=== PATIENT | female | born 1975 | race Caucasian/White ===

== ENCOUNTER 2016-12-28 00:26 | Emergency (ER) | payer MEDICARE, MEDICAID ==
[~2016-12-28] VITALS: Ht 162.6 cm; Wt 142.9 kg
[~2016-12-28 00:26] MED LIST: ACET1TAB12 PO; ACHC10OT EACH EAR; AGM875T PO; AMLO5TAB2 PO; AMOX500T2 PO; AZIT-21 PO; AZTH250C PO; BACL10TA PO; CARB200T5 PO; CARB200T6 PO; CEPH500C PO; CLON0.2T PO; CPR500T PO; CTLP20T PO; CYCL10TA9 PO; DEPAKOTE; DIVA500T7 PO; DOXY100C2 PO; EPITOL; ETOD400T PO; FAMO20TA5 PO; FLUO20CA25 PO; FLUO40CA PO; FLUO60SO TP; FOR ANXIETY; FURO20TA4 PO; FURO40TA4 PO; HYDR-1231 PO; HYDR-2890 PO; HYDR-3812 PO; HYDR-3816 PO; HYDR25CA5 PO; HYDR25TA4 PO; IBUP-30 PO; LASIX; LOSA100T28 PO; LOSA1TAB19 PO; LOSA1TAB23 PO; LOSA50TA6 PO; MELO7.5T46 PO; METH4TAB PO; METH5POW14 MC; METO5TAB2 PO; MORP60TA39 PO; MTF500T PO; NALT1TAB PO; NAPROSYN; OFLO5DRO2 OP; OMG1KC; ONDA-42 SL; PHEN15CA67 PO; PRED-501 PO; PRED20TA PO; RT-ALBUINH IH; SULF-222 PO; SULF1TAB35 PO; TOPI50TA2 PO; TRAM50TA2 PO; TRIA1TAB3 PO; TRM50T PO; VENL150C PO; ZOLOFT; [UNRECOGNIZED DRUG - REMARK]; epitol PO
[2016-12-28] MEDS ORDERED: ASPIRIN 81 MG CHEW (CHILDREN'S ASA) PO ONE (00:45)
[2016-12-28] MEDS ORDERED: RX-NITROGLYCERIN 0.4 MG TAB BTL 25'S SL PRN (00:45)
--- NOTE | 2016-12-28 01:13 | ED Chest Pain ---
General Chief Complaint: Chest Pain Stated Complaint: SWOLLEN L FOOT CHEST PAIN HEAD PAIN BP Source: patient Exam Limitations: no limitations History of Present Illness Time seen by provider: 00:30 Initial Comments here with report of central chest pain that radiates to the neck and back of the neck. Also complains of headache.denies nausea, vomiting, sweating or weakness. Has had some cardiac workup in the past but is unsure what it was and thinks it may have just been an EKG. States that she notes her blood pressure is up because she can feel the pressure in her neck. Timing/Duration: 1 hour Severity/Quality: moderate, aching, pressure Location: central Radiation: neck Activities at Onset: emotional stress (reports long-term stress) Prior CP/Workup: no prior chest pain ASA po MATTRESS WEAVER: No NTG SL MATTRESS WEAVER: No Associated Symptoms: No abdominal pain, No back pain, No diaphoresis, No fever/ chills, headache, No nausea/vomiting, No shortness of breath, No weakness Allergies and Home Medications Allergies Coded Allergies: No Known Drug Allergies (Unverified , 04/22/16) Home Medications Amlodipine Besylate 5 Mg Tablet, 5 MG PO DAILY, (Reported) Baclofen 10 Mg Tablet, 10 MG PO BID PRN for MUSCLE SPASMS, (Reported) Carbamazepine 200 Mg Tablet, 400 MG PO BID, (Reported) Divalproex Sodium 500 Mg Tablet.dr, 500 MG PO BID, (Reported) Etodolac 400 Mg Tablet, 400 MG PO BID, (Reported) Fluocinolone Acetonide 60 Ml Solution, 60 ML TP twice weekly for 4 Days Prescribed by: OMARI PEDRO on 07/02/16 1133 Furosemide 20 Mg Tablet, 20 MG PO DAILY, (Reported) Hydrocodone/Acetaminophen 1 Each Tablet, 1 EACH PO BID, (Reported) Losartan Potassium 100 Mg Tablet, 100 MG PO DAILY, (Reported) LAST FILLED 08/21/15 #30 Venlafaxine HCl 150 Mg Cap.er.24h, 150 MG PO DAILY, (Reported) Review of Systems Constitutional: see HPI, No chills, No diaphoresis, No fever EENTM: No Symptoms Reported Respiratory: No Symptoms Reported Cardiovascular: See HPI, Chest Pain, Edema Gastrointestinal: Denies Abdominal Pain, Denies Nausea, Denies Vomiting Genitourinary: No Symptoms Reported Musculoskeletal: see HPI, muscle pain, neck pain Skin: no symptoms reported Psychiatric/Neurological: No Symptoms Reported All Other Systems Reviewed Negative Unless Noted: Yes Past Vxqlcfs-Ugeshb-Ghtbzt Hx Patient Social History Alcohol Use: Denies Use Recreational Drug Use: No Smoking Status: Current Everyday Smoker Type Used: Cigarettes Recent Hopitalizations: No Immunizations Up To Date Tetanus Booster (TDap): Unknown Seasonal Allergies Seasonal Allergies: Yes (OCCASSIONALLY) Surgeries HX Surgeries: Yes (HIATAL HERNIA REPAIR,PARTIAL HYSTERECTOMY ) Surgeries: Abdominal, Gallbladder, Hysterectomy, Oophorectomy, 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 Respiratory Hx Respiratory Disorders: Yes (SLEEP APNEA DOESNT USE CPAP, ASTHMA) Respiratory Disorders: Sleep Apnea, COPD Cardiovascular Hx Cardiac Disorders: Yes (MURMUR) Cardiac Disorders: Chronic Edema/Swelling, Hypertension, Peripheral Vascular Neurological Hx Neurological Disorders: Yes (last Seizure 2-3months ago.) Neurological Disorders: Headaches /Migraines, Seizure Disorder Reproductive System Hx Reproductive Disorders: No Sexually Transmitted Disease: No HIV/AIDS: No Female Reproductive Disorders: 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, 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 Genitourinary Hx Genitourinary Disorders: Yes (frequent UTI's) Genitourinary Disorders: UTI-Chronic Gastrointestinal Hx Gastrointestinal Disorders: No Gastrointestinal Disorders: Gastroesophageal Reflux, Hiatal Hernia Musculoskeletal Hx Musculoskeletal Disorders: Yes (LYMPHEDEMA) Musculoskeletal Disorders: Arthritis Endocrine Hx Endocrine Disorders: No HEENT HX ENT Disorders: No Loss of Vision: Denies Hearing Impairment: Denies Cancer Hx Cancer: No Psychosocial Hx Psychiatric Problems: Yes Behavioral Health Disorders: Anxiety, Bipolar, Depression Integumentary HX Skin/Integumentary Disorder: No Blood Transfusions Hx Blood Disorders: No Adverse Reaction to a Blood Tr: No Reviewed Nursing Assessment Reviewed/Agree w Nursing PMH: Yes Family Medical History Significant Family History: Heart Disease, Hypertension Family Medial History: Hypertension G8 SISTER Myocardial infarction 19 FATHER ( at the age of 48yrs old due to a Heart Attack) Physical Exam Vital Signs Capillary Refill : General Appearance: Mild Distress, Obese HEENT: PERRL/EOMI, Pharynx Normal Neck: Non Tender, Supple Respiratory: Lungs Clear, Normal Breath Sounds Cardiovascular: Regular Rate, Rhythm, No Murmur Gastrointestinal: Non Tender, Soft Extremity: Normal Range of Motion, Non Tender, Pedal Edema (1+ bilateral swelling with left greater than right reported.) Neurologic/Psychiatric: Alert, Oriented x3 Skin: Normal Color, Warm/Dry Progress/Results/Core Measures Results/Orders Lab Results Laboratory Tests Test 12/28/16 01:08 12/28/16 03:07 Range/Units White Blood Count 12.4 H 4.3-11.0 10^3/uL Red Blood Count 4.58 4.35-5.85 10^6/uL Hemoglobin 14.2 11.5-16.0 G/DL Hematocrit 44 35-52 % Mean Corpuscular Volume 96 80-99 FL Mean Corpuscular Hemoglobin 31 25-34 PG Mean Corpuscular Hemoglobin Concent 32 32-36 G/DL Red Cell Distribution Width 14.2 10.0-14.5 % Platelet Count 272 130-400 10^3/uL Mean Platelet Volume 10.2 7.4-10.4 FL Neutrophils (%) (Auto) 51 42-75 % Lymphocytes (%) (Auto) 38 12-44 % Monocytes (%) (Auto) 9 0-12 % Eosinophils (%) (Auto) 2 0-10 % Basophils (%) (Auto) 0 0-10 % Neutrophils # (Auto) 6.3 1.8-7.8 X 10^3 Lymphocytes # (Auto) 4.7 H 1.0-4.0 X 10^3 Monocytes # (Auto) 1.1 H 0.0-1.0 X 10^3 Eosinophils # (Auto) 0.3 0.0-0.3 10^3/uL Basophils # (Auto) 0.1 0.0-0.1 10^3/uL Prothrombin Time 12.0 L 12.2-14.7 SEC INR Comment 0.9 0.8-1.4 Activated Partial Thromboplast Time 26 24-35 SEC D-Dimer 0.30 0.00-0.49 UG/ML Sodium Level 144 135-145 MMOL/L Potassium Level 3.7 3.6-5.0 MMOL/L Chloride Level 111 H 98-107 MMOL/L Carbon Dioxide Level 22 21-32 MMOL/L Anion Gap 11 5-14 MMOL/L Blood Urea Nitrogen 16 7-18 MG/DL Creatinine 0.68 0.60-1.30 MG/DL Estimat Glomerular Filtration Rate > 60 BUN/Creatinine Ratio 24 Glucose Level 101 70-105 MG/DL Calcium Level 8.5 8.5-10.1 MG/DL Magnesium Level 2.3 1.8-2.4 MG/DL Total Bilirubin 0.2 0.1-1.0 MG/DL Aspartate Amino Transf (AST/SGOT) 10 5-34 U/L Alanine Aminotransferase (ALT/SGPT) 13 0-55 U/L Alkaline Phosphatase 59 40-136 U/L Myoglobin 14.0 15.4 10.0-92.0 NG/ML Troponin I < 0.30 < 0.30 <0.30 NG/ML B-Type Natriuretic Peptide 33.7 <100.0 PG/ML Total Protein 6.1 L 6.4-8.2 G/DL Albumin 3.7 3.2-4.5 G/DL Amylase Level 28 25-125 U/L Lipase 25 8-78 U/L My Orders Orders - BRIANA FERGUSON MD Cbc With Automated Diff (12/28/16 00:42) Magnesium (12/28/16 00:42) Chest 1 View, Ap/Pa Only (12/28/16 00:42) Ekg Tracing (12/28/16 00:42) Cardiac Profile 1 (12/28/16 00:42) Comprehensive Metabolic Panel (12/28/16 00:42) Myoglobin Serum (12/28/16 00:42) Protime With Inr (12/28/16 00:42) Partial Thromboplastin Time (12/28/16 00:42) O2 (12/28/16 00:42) Monitor-Rhythm Ecg Trace Only (12/28/16 00:42) Lipid Panel (12/29/16 06:00) Aspirin Chewable Tablet (Baby Aspirin Ch (12/28/16 00:45) Rx-Nitroglycerin Sl Tabs (Rx-Nitrostat S (12/28/16 00:45) Saline Lock/Iv-Start (12/28/16 00:42) Lipase (12/28/16 00:42) Amylase (12/28/16 00:42) BNP (12/28/16 00:42) Fibrin Degradation Products (12/28/16 00:42) Ct Head Wo (12/28/16 01:38) Troponin I (12/28/16 03:03) Ekg Tracing (12/28/16 03:03) Myoglobin Serum (12/28/16 03:03) Metoprolol Tartrate (Ir) Tab (Lopressor (12/28/16 04:00) Cyclobenzaprine Tablet (Flexeril Tablet) (12/28/16 03:59) Medications Given in ED Current Medications Medications Dose Ordered Sig/Ramsey Route Start Time Stop Time Status Last Admin Dose Admin Aspirin 324 mg ONCE ONCE PO 12/28/16 00:45 12/28/16 00:46 DC 12/28/16 01:10 324 MG Nitroglycerin 0.4 mg PRN PRN SL 12/28/16 00:45 12/28/16 01:09 0.4 MG Progress Note : Progress Note seen and evaluated. IV, labs, EKG and chest x-ray ordered. ASA 324 mg by mouth and nitroglycerin sublingual ordered. Monitor patient. CT head ordered due to patient report of seizure approximately 1 month ago and falling and hitting her head. She reports increased headaches and pain since then. Monitor patient. Pain resolved after blood pressure improved and with rest. Labs do not show any significant findings. Repeat troponin, myoglobin and EKG ordered. 0350: Metoprolol 25 mg by mouth initiated. Patient had been on 2 agents previously and is only on losartan now. Repeat troponin and myoglobin are negative. Repeat EKG does not show any changes. I did discuss the findings and concerns with the patient. There does not appear to be any active heart attack going on right now. We will initiate additional blood pressure agent and have her follow-up with her doctor and with cardiology for further evaluation including stress test. This was discussed with the patient who agrees. Discharged home with return precautions. Patient verbalize understanding instructions and agreement with plan. ECG Initial ECG Impression Date: December 28, 2016 Initial ECG Impression Time: 00:35 Initial ECG Rate: 84 Initial ECG Rhythm: Normal Sinus Comment sinus rhythm with occasional PVC. No evidence of ST elevation OK. Normal axis. Similar to previous of 11/28/14. Interpreted by me. EKG : EKG Time: 03:10 Rate: 82 Rhythm: Normal Sinus Comment Sinus rhythm with normal axis. No evidence of ST elevation OK. Unchanged from previous done earlier this morning. Interpreted by me. Diagnostic Imaging Diagonstic Imaging: Xray Plain Films/CT/US/NM/MRI: chest Comments No acute findings Reviewed: Reviewed by Me Diagonstic Imaging: CT Plain Films/CT/US/NM/MRI: head Comments No acute findings Reviewed: Reviewed [place] Study Departure Impression Impression: Primary Impression: Chest pain Qualified Codes: R07.9 - Chest pain, unspecified Additional Impressions: Neck pain Headache Qualified Codes: R51 - Headache Uncontrolled hypertension Disposition: 01 HOME, SELF-CARE Condition: Improved Departure-Patient Inst. Decision time for Depature: 03:57 Referrals: KATHRYN RICCI MD FACP [facility] Vivian GREER MD, BASHAR J MD SEGLIE, FLOYD R MD (PCP/Family) Primary Care Physician Patient Instructions: Chest Pain (DC), Generalized Neck Pain (DC), Headache, Adult (DC), High Blood Pressure (DC) Add. Discharge Instructions: All discharge instructions reviewed with patient and/or family. Voiced understanding. Take medications as directed. Follow-up with your doctor this week for recheck and further evaluation including stress test. You may follow-up with the document management specialist as well for the stress test. Return for worsening, fever, vomiting , weakness, breathing problems or other concerns as needed. Scripts Metoprolol Tartrate (Metoprolol Tartrate) 25 Mg Tablet 25 MG PO BID, #60 TAB Prov: BRIANA FERGUSON MD 12/28/16 Cyclobenzaprine HCl (Cyclobenzaprine HCl) 10 Mg Tablet 10 MG PO Q8H Y for SPASMS, #15 TAB 0 Refills Prov: BRIANA FERGUSON MD 12/28/16 BRIANA FERGUSON MD December 28, 2016 01:13
[2016-12-28 01:16] LABS: BASOPHILS # (AUTO) 0.1 10^3/uL (0.0-0.1); BASOPHILS % (AUTO) 0 % (0-10); EOSINOPHILS # (AUTO) 0.3 10^3/uL (0.0-0.3); EOSINOPHILS % (AUTO) 2 % (0-10); LYMPHOCYTES # (AUTO) 4.7 X 10^3 (1.0-4.0); LYMPHOCYTES % (AUTO) 38 % (12-44); MEAN CORPUSCULAR HEMOGLOBIN 31 PG (25-34); MEAN CORPUSCULAR HGB CONC 32 G/DL (32-36); MEAN CORPUSCULAR VOLUME 96 FL (80-99); MEAN PLATELET VOLUME 10.2 FL (7.4-10.4); MONOCYTES # (AUTO) 1.1 X 10^3 (0.0-1.0); MONOCYTES % (AUTO) 9 % (0-12); NEUTROPHILS # (AUTO) 6.3 X 10^3 (1.8-7.8); NEUTROPHILS % (AUTO) 51 % (42-75); PLATELET COUNT 272 10^3/uL (130-400); RED BLOOD COUNT 4.58 10^6/uL (4.35-5.85); RED CELL DISTRIBUTION WIDTH 14.2 % (10.0-14.5); WHITE BLOOD COUNT 12.4 10^3/uL (4.3-11.0)
[2016-12-28 01:24] LABS: INR 0.9 (0.8-1.4)
[2016-12-28 01:38] LABS: ALANINE AMINOTRANSFERASE 13 U/L (0-55); ALBUMIN 3.7 G/DL (3.2-4.5); AMYLASE 28 U/L (25-125); ANION GAP 11 MMOL/L (5-14); ASPARTATE AMINO TRANSFERASE 10 U/L (5-34); BILIRUBIN,TOTAL 0.2 MG/DL (0.1-1.0); BLOOD UREA NITROGEN 16 MG/DL (7-18); BUN/CREATININE RATIO 24; CALCIUM 8.5 MG/DL (8.5-10.1); CARBON DIOXIDE 22 MMOL/L (21-32); CHLORIDE 111 MMOL/L (98-107); CREATININE SERUM 0.68 MG/DL (0.60-1.30); GFR ESTIMATED > 60; GLUCOSE 101 MG/DL (70-105); LIPASE 25 U/L (8-78); MAGNESIUM 2.3 MG/DL (1.8-2.4); POTASSIUM 3.7 MMOL/L (3.6-5.0); SODIUM 144 MMOL/L (135-145); TOTAL PROTEIN 6.1 G/DL (6.4-8.2)
[2016-12-28 03:34] LABS: MYOGLOBIN SERUM 15.4 NG/ML (10.0-92.0); TROPONIN I < 0.30 NG/ML (<0.30)
[2016-12-28] MEDS ORDERED: CYCLOBENZAPRINE 10 MG (FLEXERIL) TAB PO STA (03:59)
[2016-12-28] MEDS ORDERED: meTOprolol TARTRATE 25 MG (LOPRESSOR) TABLET PO ONE (04:00)
[2016-12-28] MEDS ORDERED: METO-333 PO (04:02)
[2016-12-28] MEDS ORDERED: CYCL10TA9 PO (04:02)
[2016-12-28 04:14] VITALS: BP 133/95
--- NOTE | 2016-12-28 06:04 | Diagnostic Imaging Report ---
PROCEDURE: CT head without contrast. TECHNIQUE: Multiple contiguous axial images were obtained through the brain without the use of intravenous contrast. INDICATION: Recurrent headache FINDINGS: Ventricles and sulci are within normal limits for size. There is no intracranial hemorrhage identified. There is no abnormal mass effect or shift of midline structures. IMPRESSION: Unremarkable CT of the head. Dictated by: Dictated on workstation # [id number]
--- NOTE | 2016-12-28 07:00 | Diagnostic Imaging Report ---
INDICATION: Chest pain. TECHNIQUE: Single view chest 1:18 AM. CORRELATION STUDY: 03/01/2016 FINDINGS: Heart size enlarged. Vasculature is within normal limits. The lungs are clear with no consolidating infiltrate. There is no significant effusion or pneumothorax. IMPRESSION: 1. Cardiac enlargement without failure otherwise no acute findings the chest. Dictated by: Dictated on workstation # [id number]
== END 2016-12-28 04:16 | disposition home or self-care (01) ==
LOC: EDUNIT# 00:26 → ER 00:29
DX: R07.9 Chest pain, unspecified (principal); M54.2 Cervicalgia; R51 Headache; I10 Essential (primary) hypertension; F17.210 Nicotine dependence, cigarettes, uncomplicated; Z79.899 Other long term (current) drug therapy
CPT/HCPCS: 36415; 70450; 71010; 80053; 82150; 83690; 83735; 83874; 83880; 84484; 85025; 85379; 85610; 85730; 93005; 93041

== ENCOUNTER 2018-04-27 18:02 | Emergency (ER) | payer MEDICARE, MEDICAID ==
[~2018-04-27] VITALS: Ht 162.6 cm; Wt 131.5 kg
[~2018-04-27 18:02] MED LIST changes: +ACHD5005 PO; -AMLO5TAB2 PO; +AMLO5TAB7 PO; +DIVA-76 PO; +HYDR-34 PO; -HYDR-3812 PO; -LOSA100T28 PO; +LOSA100T8 PO; +METO-333 PO
--- NOTE | 2018-04-27 18:34 | ED Lower Extremity ---
General Chief Complaint: Lower Extremity Stated Complaint: L LEG SWELLING Nursing Triage Note: PT TO ROOM 10 PT CO OF LOWER EXT SWELLING IN L LEG STARTING LAST NITE. Nursing Sepsis Screen: No Definite Risk Source: patient Exam Limitations: no limitations History of Present Illness Date Seen by Provider: Apr 27, 2018 Time Seen by Provider: 18:29 Initial Comments The patient is a 42-year-old white female who has had 54 previous contacts. Several of these have involved complaints of edema. Multiple lower extremity Doppler studies have been done without evidence of phlebitis. She reports that beginning last evening her left lower extremity has seemed to swell considerably as compared to the right. It is not painful. When asked if she had ever used compression stockings she stated that they had been recommended before but she would go to a pharmacy to purchase these there were none available that would fit. Onset: yesterday Pain/Injury Location: left leg Allergies and Home Medications Allergies Coded Allergies: No Known Drug Allergies (Unverified , 04/22/16) Home Medications Amlodipine Besylate 5 Mg Tablet, 5 MG PO DAILY, (Reported) Baclofen 10 Mg Tablet, 10 MG PO BID PRN for MUSCLE SPASMS, (Reported) Carbamazepine 200 Mg Tablet, 400 MG PO BID, (Reported) Cyclobenzaprine HCl 10 Mg Tablet, 10 MG PO Q8H PRN for SPASMS Prescribed by: BRIANA FERGUSON on 12/28/16401 Divalproex Sodium 500 Mg Tablet.dr, 500 MG PO BID, (Reported) Etodolac 400 Mg Tablet, 400 MG PO BID, (Reported) Fluocinolone Acetonide 60 Ml Solution, 60 ML TP twice weekly Prescribed by: OMARI PEDRO on 07/02/16 1133 Furosemide 20 Mg Tablet, 20 MG PO DAILY, (Reported) Hydrocodone Bit/Acetaminophen 1 Each Tablet, 1 EACH PO BID, (Reported) Losartan Potassium 100 Mg Tablet, 100 MG PO DAILY, (Reported) LAST FILLED 08/21/15 #30 Metoprolol Tartrate 25 Mg Tablet, 25 MG PO BID Prescribed by: BRIANA FERGUSON on 12/28/16 0402 Venlafaxine HCl 150 Mg Cap.er.24h, 150 MG PO DAILY, (Reported) Patient Home Medication List Home Medication List Reviewed: Yes Review of Systems Constitutional: see HPI EENTM: no symptoms reported Respiratory: no symptoms reported Cardiovascular: no symptoms reported Gastrointestinal: no symptoms reported Genitourinary: no symptoms reported Musculoskeletal: no symptoms reported Skin: no symptoms reported Psychiatric/Neurological: No Symptoms Reported Past Sepoidp-Kixuqs-Rwbhxi Hx Patient Social History Alcohol Use: Denies Use Recreational Drug Use: No Type Used: Cigarettes Recent Foreign Travel: No Contact w/Someone Who Travel: No Recent Infectious Disease Expo: No Recent Hopitalizations: No Physical Abuse: No Sexual Abuse: No Immunizations Up To Date Tetanus Booster (TDap): Unknown Seasonal Allergies Seasonal Allergies: Yes (OCCASSIONALLY) Past Medical History Surgeries: Yes (HIATAL HERNIA REPAIR,PARTIAL HYSTERECTOMY ) Abdominal, Gallbladder, Hysterectomy, Oophorectomy, 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 Respiratory: Yes (SLEEP APNEA DOESNT USE CPAP, ASTHMA) Sleep Apnea, COPD Currently Using CPAP: No (Has not used in 1yr- was taken due to noncompliance) Currently Using BIPAP: No Cardiac: Yes (MURMUR) Chronic Edema/Swelling, Hypertension, Peripheral Vascular Neurological: Yes (last Seizure 2-3months ago.) Headaches /Migraines, Seizure Disorder Reproductive Disorders: No Female Reproductive Disorders: Denies 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 Sexually Transmitted Disease: No HIV/AIDS: No UTI-Chronic Gastrointestinal: No Gastroesophageal Reflux, Hiatal Hernia Musculoskeletal: Yes (LYMPHEDEMA) Arthritis Endocrine: No Loss of Vision: Denies Hearing Impairment: Denies Cancer: No Psychosocial: Yes Anxiety, Bipolar, Depression Integumentary: No Blood Disorders: No Adverse Reaction/Blood Tranf: No Family Medical History Hypertension G8 SISTER Myocardial infarction 19 FATHER ( at the age of 50yrs old due to a Heart Attack) Heart Disease, Hypertension Physical Exam Vital Signs Vital Signs - First Documented 04/27/18 18:05 Temp 97.9 Pulse 91 Resp 18 B/P (MAP) 151/97 (115) Pulse Ox 97 Capillary Refill : Less Than 3 Seconds Height, Weight, BMI Height: 5'4.00" Weight: 290lbs. 12.0oz. [id number]; 56.8 BMI Method:Stated General Appearance: no apparent distress, other HEENT: normal ENT inspection Neck: full range of motion Cardiovascular: normal peripheral pulses, regular rate, rhythm, no edema, no gallop, no JVD, no murmur Respiratory: chest non-tender, lungs clear, normal breath sounds, no respiratory distress, no accessory muscle use Gastrointestinal: other (huge pannus) Back: normal inspection The lower extremities above the malleoli and extending to the knee are quite large. There is no redness or warmth. The left appears significantly larger than the right. There is no pitting or pain to palpation. Curiously the feet are not particularly edematous. Progress/Results/Core Measures Results/Orders My Orders Orders - LEV STEPHENSON MD Venous Lower Ext Lt (04/27/18 18:28) Vital Signs/I&O 04/27/18 18:05 Temp 97.9 Pulse 91 Resp 18 B/P (MAP) 151/97 (115) Pulse Ox 97 Blood Pressure Mean: 115 Departure Communication (Admissions) Venous Doppler of left lower extremity shows no evidence of venous thrombosis Impression Primary Impression: venous stasis edema Disposition: HOME, SELF-CARE Condition: Stable/Unchanged Departure-Patient Inst. Decision time for Depature: 19:33 Referrals: ROHINI SAMAYOA APRN (PCP) Primary Care Physician Patient Instructions: Dependent Edema (DC) Add. Discharge Instructions: All discharge instructions reviewed with patient and/or family. Voiced understanding. Elevate your legs whenever possible. See your provider for consideration of fitted compression stockings or alternatively instructions on applying Efraín wraps bilaterally. LEV STEPHENSON MD Apr 27, 2018 18:34
--- NOTE | 2018-04-27 19:26 | Diagnostic Imaging Report ---
EXAM: US venous lower extremity, left. INDICATION: Lower extremity edema. COMPARISON: None. TECHNIQUE: Duplex, giles-scale and color flow imaging of the left lower extremity venous system was performed. FINDINGS: The left common femoral vein, superficial femoral vein profunda femoris, and popliteal veins are normal. These vessels show normal compressibility, color flow and Doppler augmentation. The deep calf veins demonstrate no distinct intraluminal thrombus, where seen. IMPRESSION: Negative venous Doppler of the left lower extremity. Dictated by: Dictated on workstation # [id number]
[2018-04-27 19:44] VITALS: BP 153/94
== END 2018-04-27 19:45 | disposition home or self-care (01) ==
LOC: EDUNIT# 18:02 → ER 18:03
DX: G47.30 Sleep apnea, unspecified (principal); I87.302 Chronic venous hypertension (idiopathic) without complications of left lower extremity; J44.9 Chronic obstructive pulmonary disease, unspecified; I10 Essential (primary) hypertension; I73.9 Peripheral vascular disease, unspecified; G43.909 Migraine, unspecified, not intractable, without status migrainosus; G40.909 Epilepsy, unspecified, not intractable, without status epilepticus; K21.9 Gastro-esophageal reflux disease without esophagitis; F41.9 Anxiety disorder, unspecified; F31.9 Bipolar disorder, unspecified; Z91.19 Patient's noncompliance with other medical treatment and regimen; Z82.49 Family history of ischemic heart disease and other diseases of the circulatory system; Z98.890 Other specified postprocedural states; Z90.710 Acquired absence of both cervix and uterus; Z87.19 Personal history of other diseases of the digestive system; Z87.440 Personal history of urinary (tract) infections; Z98.51 Tubal ligation status

== ENCOUNTER 2018-07-14 23:37 | Emergency (ER) | payer MEDICARE, MEDICAID ==
[~2018-07-14] VITALS: Ht 162.6 cm; Wt 131.9 kg
--- OUTSIDE RECORDS SUMMARY | 2018-07-14 23:51 | XMS REPORT | Continuity of Care Document ---
Author Author [facility] Organization [facility] Address Unknown Phone Unavailable Allergies Active Description Code Type Severity Reaction Onset Reported/Identified Relationship to Patient Clinical Status Yes No Known Drug Allergies [id number] Drug Allergy Mild N/A 05/19/2009 Yes No Known Drug Allergies [id number] Drug Allergy Unknown N/A 04/22/2016 Medications There is no data. Problems Date Dx Coded Attending Type Code Diagnosis Diagnosed By 01/01/2010 Ot 723.1 08/27/2011 Ot 789.09 ABDOMINAL PAIN, OTHER SPECIFIED SITE 02/25/2012 Ot 305.1 TOBACCO USE DISORDER 02/25/2012 Ot 401.9 HYPERTENSION NOS 02/25/2012 Ot 780.2 SYNCOPE AND COLLAPSE 02/25/2012 Ot V58.69 OTH MED,LT, CURRENT USE 03/22/2012 Ot 780.2 SYNCOPE AND COLLAPSE 03/22/2012 Ot V58.69 OTH MED,LT, CURRENT USE 07/13/2012 Ot 780.39 OTHER CONVULSIONS 09/15/2012 Ot 401.9 HYPERTENSION NOS 09/15/2012 Ot 486 PNEUMONIA, ORGANISM NOS 09/15/2012 Ot 785.1 PALPITATIONS 09/15/2012 Ot 786.50 CHEST PAIN NOS 09/15/2012 Ot 786.59 CHEST PAIN NEC 09/15/2012 Ot V58.69 OTH MED,LT, CURRENT USE 11/05/2012 Ot 327.23 OBSTRUCTIVE SLEEP APNEA (ADULT) (PEDIATR 12/17/2012 CAROLYNE SANDOVAL, ERIK Sierra Ot 327.23 OBSTRUCTIVE SLEEP APNEA (ADULT) (PEDIATR 02/01/2013 RICHIE DEVLIN DO Ot 782.1 NONSPECIF SKIN ERUPT NEC 02/01/2013 RICHIE DEVLIN DO Ot 782.3 EDEMA 07/09/2013 ONEYDA SANDOVAL, IVIS Escamilla Ot 246.9 DISORDER OF THYROID NOS 07/09/2013 ONEYDA SANDOVAL, IVIS Escamilla Ot 276.8 HYPOPOTASSEMIA 07/09/2013 IVIS CALL MD Ot 345.90 EPILEPSY UNSPEC W/O MENTION INTRACTABLE 11/04/2013 MELANIE SANDOVAL, EDY Bustamante Ot 327.23 OBSTRUCTIVE SLEEP APNEA (ADULT) (PEDIATR 11/04/2013 MELANIE SANDOVAL, EDY Bustamante Ot 784.0 HEADACHE 11/04/2013 EDY NAVARRO MD Ot 786.09 RESPIRATORY ABNORM NEC 11/04/2013 EDY NAVARRO MD Ot V15.81 HX OF PAST NONCOMPLIANCE 05/21/2014 ONEYDA SANDOVAL, IVIS Escamilla Ot 346.90 MIGRAINE UNSPECIFIED W/O INTRACT MGRN W/ 10/11/2014 Ot 346.90 MIGRAINE UNSPECIFIED W/O INTRACT MGRN W/ 11/28/2014 Ot 729.5 11/28/2014 Ot 729.81 11/28/2014 Ot 401.9 11/28/2014 Ot 424.0 11/28/2014 THALIA SANDOVAL, RICHIE Corrales Ot 241.1 11/28/2014 ARISTIDES EVERETT Ot 536.8 STOMACH FUNCTION DIS NEC 11/28/2014 ARISTIDES EVERETT Ot 729.5 PAIN IN LIMB 11/28/2014 ARISTIDES EVERETT Ot 729.81 SWELLING OF LIMB 11/28/2014 ARISTIDES EVERETT Ot 782.3 EDEMA 11/28/2014 ARISTIDES EVERETT Ot V15.81 HX OF PAST NONCOMPLIANCE 01/01/2015 Ot 729.5 01/01/2015 Ot 729.81 01/01/2015 Ot 401.9 01/01/2015 Ot 424.0 01/01/2015 RICHIE VÁSQUEZ MD Ot 241.1 01/01/2015 ARISTIDES EVERETT Ot 847.2 SPRAIN LUMBAR REGION 01/01/2015 ARISTIEDS EVERETT Ot 959.19 OTH INJURY OF OTHER SITES OF TRUNK 01/01/2015 ARISTIDES EVERETT Ot E000.8 OTHER EXTERNAL CAUSE STATUS 01/01/2015 ARISTIDES EVERETT Ot E013.9 OTHER HOUSEHOLD MAINTENANCE 01/01/2015 ARISTIDES EVERETT Ot E849.0 ACCIDENT IN HOME 01/01/2015 ARISTIDES EVERETT Ot E927.0 OVEREXERTION FROM SUDDEN STRENUOUS MOVEM 01/12/2015 Ot 729.5 01/12/2015 Ot 729.81 01/12/2015 Ot 401.9 01/12/2015 Ot 424.0 01/12/2015 THALIA SANDOVAL, RICHIE A Ot 241.1 01/12/2015 BRIANA FERGUSON MD Ot 345.90 EPILEPSY UNSPEC W/O MENTION INTRACTABLE 01/12/2015 BRIANA FERGUSON MD Ot 784.0 HEADACHE 02/07/2015 BRIANA FERGUSON MD Ot 380.10 INFEC OTITIS EXTERNA NOS 02/07/2015 BRIANA FERGUSON MD Ot 388.70 OTALGIA NOS 02/17/2015 ARISTIDES EVERETT Ot 346.90 MIGRAINE UNSPECIFIED W/O INTRACT MGRN W/ 02/17/2015 ARISTIDES EVERETT Ot 465.9 ACUTE URI NOS 02/17/2015 ARISTIDES EVERETT Ot 784.0 HEADACHE 03/26/2015 IVIS CALL MD Ot 784.0 HEADACHE 03/26/2015 IVIS CALL MD Ot 787.01 NAUSEA WITH VOMITING 03/26/2015 IVIS CALL MD Ot 787.02 NAUSEA ALONE 04/01/2015 RAMSEY FINLEY MD Ot 782.3 04/12/2015 RAMSEY FINLEY MD Ot 782.3 04/17/2015 BRIANA FERGUSON MD Ot 112.3 CUTANEOUS CANDIDIASIS 04/17/2015 BRIANA FERGUSON MD Ot 682.6 CELLULITIS OF LEG 04/17/2015 BRIANA FERGUSON MD Ot 729.5 PAIN IN LIMB 04/18/2015 Ot 729.5 04/18/2015 Ot 729.81 04/18/2015 Ot 401.9 04/18/2015 Ot 424.0 04/18/2015 THALIA SANDOVAL, RICHIE A Ot 241.1 04/18/2015 RAMSEY FINLEY MD Ot 782.3 06/17/2015 JIMI TORRES MD Ot 682.6 07/11/2015 PRISCA BOSWELL APRN Ot E66.09 OTHER OBESITY DUE TO EXCESS CALORIES 07/11/2015 PRISCA BOSWELL APRN Ot L02.415 CUTANEOUS ABSCESS OF RIGHT LOWER LIMB 07/11/2015 PRISCA BOSWELL APRN Ot Z68.43 BODY MASS INDEX (BMI) 50-59.9 , ADULT 08/19/2015 THALIA SANDOVAL, RICHIE Corrales Ot 241.1 08/19/2015 RAMSEY FINLEY MD R Ot 782.3 08/19/2015 MELISSA SANDOVAL, JIMI Ot 682.6 08/21/2015 RAMSEY FINLEY MD R Ot E66.01 MORBID (SEVERE) OBESITY DUE TO EXCESS CA 08/21/2015 RAMSEY FINLEY MD R Ot F17.210 NICOTINE DEPENDENCE, CIGARETTES, UNCOMPL 08/21/2015 RAMSEY FINLEY MD R Ot F32.9 MAJOR DEPRESSIVE DISORDER, SINGLE EPISOD 08/21/2015 RAMSEY FINLEY MD R Ot F41.9 ANXIETY DISORDER, UNSPECIFIED 08/21/2015 RAMSEY FINLEY MD R Ot G40.909 EPILEPSY, UNSP, NOT INTRACTABLE, WITHOUT 08/21/2015 RAMSEY FINLEY MD R Ot G43.909 MIGRAINE, UNSP, NOT INTRACTABLE, WITHOUT 08/21/2015 RAMSEY FINLEY MD R Ot I10 ESSENTIAL (PRIMARY) HYPERTENSION 08/21/2015 RAMSEY FINLEY MD R Ot J44.9 CHRONIC OBSTRUCTIVE PULMONARY DISEASE, U 08/21/2015 RAMSEY FINLEY MD R Ot K21.9 GASTRO-ESOPHAGEAL REFLUX DISEASE WITHOUT 08/21/2015 RAMSEY FINLEY MD R Ot R60.1 GENERALIZED EDEMA 08/21/2015 RAMSEY FINLEY MD Ot Z68.43 BODY MASS INDEX (BMI) 50-59.9 , ADULT 10/02/2015 THALIA SANDOVAL, RICHIE Corrales Ot 241.1 10/02/2015 RAMSEY FINLEY MD R Ot 782.3 10/02/2015 MELISSA SANDOVAL, JIMI Ot 682.6 10/02/2015 GURWINDER GODWIN MD Ot M17.11 10/03/2015 RAMSEY FINLEY MD R Ot E66.01 MORBID (SEVERE) OBESITY DUE TO EXCESS CA 10/03/2015 RAMSEY FINLEY MD R Ot F17.210 NICOTINE DEPENDENCE, CIGARETTES, UNCOMPL 10/03/2015 RAMSEY FINLEY MD R Ot I10 ESSENTIAL (PRIMARY) HYPERTENSION 10/03/2015 MALIA SANDOVAL, RAMSEY Yan Ot K21.9 GASTRO-ESOPHAGEAL REFLUX DISEASE WITHOUT 10/03/2015 MALIA SANDOVAL, RAMSEY R Ot R60.0 LOCALIZED EDEMA 10/03/2015 MALIA SANDOVAL, RAMSEY R Ot R73.09 OTHER ABNORMAL GLUCOSE 10/03/2015 MALIA SANDOVAL, RAMSEY R Ot Z68.43 BODY MASS INDEX (BMI) 50-59.9 , ADULT 10/18/2015 CITLALI SANDOVAL, GURWINDER Huerta Ot M17.11 10/25/2015 PEDROOMARI BAUMANN APRN Ot F17.210 NICOTINE DEPENDENCE, CIGARETTES, UNCOMPL 10/25/2015 OMARI PEDRO APRN Ot G40.909 EPILEPSY, UNSP, NOT INTRACTABLE, WITHOUT 11/01/2015 ONEYDA SANDOVAL, IVIS Escamilla Ot E66.9 OBESITY, UNSPECIFIED 11/01/2015 ONEYDA SANDOVAL, IVIS Escamilla Ot F17.210 NICOTINE DEPENDENCE, CIGARETTES, UNCOMPL 11/01/2015 ONEYDA SANDOVAL, IVIS Escamilla Ot G40.909 EPILEPSY, UNSP, NOT INTRACTABLE, WITHOUT 11/01/2015 ONEYDA SANDOVAL, IVIS Escamilla Ot J20.9 ACUTE BRONCHITIS, UNSPECIFIED 11/01/2015 ONEYDA SANDOVAL, IVIS Escamilla Ot R51 HEADACHE 11/25/2015 Ot E07.9 DISORDER OF THYROID, UNSPECIFIED 11/25/2015 Ot E66.9 OBESITY, UNSPECIFIED 11/25/2015 Ot F17.210 NICOTINE DEPENDENCE, CIGARETTES, UNCOMPL 11/25/2015 Ot G40.909 EPILEPSY, UNSP, NOT INTRACTABLE, WITHOUT 11/25/2015 Ot I10 ESSENTIAL ( PRIMARY) HYPERTENSION 11/25/2015 Ot N39.0 URINARY TRACT INFECTION, SITE NOT SPECIF 11/25/2015 Ot S00.12XA CONTUSION OF LEFT EYELID AND PERIOCULAR 11/25/2015 Ot S02.2XXA FRACTURE OF NASAL BONES, INIT ENCNTR FOR 11/25/2015 Ot W18.30XA FALL ON SAME LEVEL, UNSPECIFIED, INITIAL 11/25/2015 Ot Y99.8 OTHER EXTERNAL CAUSE STATUS 11/30/2015 Ot E07.9 11/30/2015 Ot E66.9 11/30/2015 Ot F17.210 11/30/2015 Ot G40.909 11/30/2015 Ot I10 11/30/2015 Ot N39.0 11/30/2015 Ot S00.12XA 11/30/2015 Ot S02.2XXA 11/30/2015 Ot W18.30XA 11/30/2015 Ot Y99.8 12/31/2015 MALIA SANDOVAL, RAMSEY R Ot M79.1 MYALGIA 01/29/2016 MALIA SANDOVAL, RAMSEY R Ot M79.1 MYALGIA 03/01/2016 CLAUS DO, RICHIE K Ot E66.9 OBESITY, UNSPECIFIED 03/01/2016 CLAUS DO, RICHIE K Ot F17.210 NICOTINE DEPENDENCE, CIGARETTES, UNCOMPL 03/01/2016 CLAUS DO, RICHIE K Ot K62.5 HEMORRHAGE OF ANUS AND RECTUM 03/03/2016 CLAUS DO, RICHIE K Ot E66.9 OBESITY, UNSPECIFIED 03/03/2016 CLAUS DO, RICHIE K Ot F17.210 NICOTINE DEPENDENCE, CIGARETTES, UNCOMPL 03/03/2016 CLAUS DO, RICHIE K Ot K62.5 HEMORRHAGE OF ANUS AND RECTUM 03/18/2016 OMARI PEDRO APRN Ot I10 ESSENTIAL (PRIMARY) HYPERTENSION 03/18/2016 OMARI PEDRO PARKING ENFORCEMENT MANAGER Ot R20.0 ANESTHESIA OF SKIN 03/18/2016 OMARI PEDRO PARKING ENFORCEMENT MANAGER Ot R20.2 PARESTHESIA OF SKIN 03/19/2016 OMARI PEDRO PARKING ENFORCEMENT MANAGER Ot I10 ESSENTIAL (PRIMARY) HYPERTENSION 03/19/2016 OMARI PEDRO APRN Ot R20.0 ANESTHESIA OF SKIN 03/19/2016 OMARI PEDRO PARKING ENFORCEMENT MANAGER Ot R20.2 PARESTHESIA OF SKIN 04/22/2016 RANDAL LOUIS DO Ot K92.1 MELENA 04/22/2016 RANDAL LOUIS DO Ot Z01.818 ENCOUNTER FOR OTHER PREPROCEDURAL EXAMIN 04/23/2016 RANDAL LOUIS DO Ot K92.1 MELENA 04/23/2016 RANDAL LOUIS DO Ot Z01.818 ENCOUNTER FOR OTHER PREPROCEDURAL EXAMIN 04/28/2016 THALIA SANDOVAL, RICHIE Corrales Ot 241.1 NONTOX MULTINODUL GOITER 04/28/2016 MALIA SANDOVAL, RAMSEY Yan Ot 782.3 EDEMA 04/28/2016 MELISSA SANDOVAL, JIMI Ot 682.6 CELLULITIS OF LEG 04/28/2016 CITLALI SANDOVAL, GURWINDER Huerta Ot M17.11 UNILATERAL PRIMARY OSTEOARTHRITIS, RIGHT 04/28/2016 MALIA SANDOVAL, RAMSEY R Ot M79.1 MYALGIA 04/28/2016 RANDAL LOUIS DO Ot K63.5 POLYP OF COLON 05/01/2016 RANDAL LOUIS DO Ot K63.5 POLYP OF COLON 05/01/2016 RANDAL LOUIS DO Ot K63.5 POLYP OF COLON 07/02/2016 OMARI PEDRO PARKING ENFORCEMENT MANAGER Ot G43.909 MIGRAINE, UNSP, NOT INTRACTABLE, WITHOUT 07/02/2016 OMARI PEDRO PARKING ENFORCEMENT MANAGER Ot I10 ESSENTIAL (PRIMARY) HYPERTENSION 07/02/2016 OMARI PEDRO PARKING ENFORCEMENT MANAGER Ot J44.9 CHRONIC OBSTRUCTIVE PULMONARY DISEASE, U 07/02/2016 OMARI PEDRO PARKING ENFORCEMENT MANAGER Ot L30.9 DERMATITIS, UNSPECIFIED 07/02/2016 OMARI PEDRO PARKING ENFORCEMENT MANAGER Ot Z79.899 OTHER RESIDENTIAL (CURRENT) DRUG THERAPY 07/11/2016 OMARI PEDRO PARKING ENFORCEMENT MANAGER Ot G43.909 MIGRAINE, UNSP, NOT INTRACTABLE, WITHOUT 07/11/2016 OMARI PEDRO PARKING ENFORCEMENT MANAGER Ot I10 ESSENTIAL (PRIMARY) HYPERTENSION 07/11/2016 OMARI PEDRO PARKING ENFORCEMENT MANAGER Ot J44.9 CHRONIC OBSTRUCTIVE PULMONARY DISEASE, U 07/11/2016 OMARI PEDRO PARKING ENFORCEMENT MANAGER Ot L30.9 DERMATITIS, UNSPECIFIED 07/11/2016 OMARI PEDRO PARKING ENFORCEMENT MANAGER Ot Z79.899 OTHER MANUFACTURING ENGINEER CHIEF (CURRENT) DRUG THERAPY 08/06/2016 THALIA SANDOVAL, RICHIE A Ot 241.1 NONTOX MULTINODUL GOITER 08/06/2016 MALIA SANDOVAL, RAMSEY Yan Ot 782.3 EDEMA 08/06/2016 MELISSA SANDOVAL, JIMI Ot 682.6 CELLULITIS OF LEG 08/06/2016 CITLALI SANDOVAL, GURWINDER Huerta Ot M17.11 UNILATERAL PRIMARY OSTEOARTHRITIS, RIGHT 08/06/2016 MALIA SANDOVAL, RAMSEY Yan Ot M79.1 MYALGIA 12/28/2016 BRIANA FERGUSON MD Ot F17.210 NICOTINE DEPENDENCE, CIGARETTES, UNCOMPL 12/28/2016 BRIANA FERGUSON MD Ot I10 ESSENTIAL (PRIMARY) HYPERTENSION 12/28/2016 BRIANA FERGUSON MD Ot M54.2 CERVICALGIA 12/28/2016 BRIANA FERGUSON MD Ot R07.9 CHEST PAIN, UNSPECIFIED 12/28/2016 BRIANA FERGUSON MD Ot R51 HEADACHE 12/28/2016 BRIANA FERGUSON MD, Ot Z79.899 OTHER MANUFACTURING ENGINEER CHIEF (CURRENT) DRUG THERAPY 12/30/2016 BRIANA FERGUSON MD Ot F17.210 NICOTINE DEPENDENCE, CIGARETTES, UNCOMPL 12/30/2016 BRIANA FERGUSON MD Ot I10 ESSENTIAL (PRIMARY) HYPERTENSION 12/30/2016 BRIANA FERGUSON MD Ot M54.2 CERVICALGIA 12/30/2016 BRIANA FERGUSON MD Ot R07.9 CHEST PAIN, UNSPECIFIED 12/30/2016 BRIANA FERGUSON MD Ot R51 HEADACHE 12/30/2016 BRIANA FERGUSON MD, Ot Z79.899 OTHER MANUFACTURING ENGINEER CHIEF (CURRENT) DRUG THERAPY 04/27/2018 LEV STEPHENSON MD Ot F31.9 BIPOLAR DISORDER, UNSPECIFIED 04/27/2018 LEV STEPHENSON MD Ot F41.9 ANXIETY DISORDER, UNSPECIFIED 04/27/2018 LEV STEPHENSON MD Ot G40.909 EPILEPSY, UNSP, NOT INTRACTABLE, WITHOUT 04/27/2018 LEV STEPHENSON MD Ot G43.909 MIGRAINE, UNSP, NOT INTRACTABLE, WITHOUT 04/27/2018 LEV STEPHENSON MD Ot G47.30 SLEEP APNEA, UNSPECIFIED 04/27/2018 LEV STEPHENSON MD Ot I10 ESSENTIAL (PRIMARY) HYPERTENSION 04/27/2018 LEV STEPHENSON MD Ot I73.9 PERIPHERAL VASCULAR DISEASE, UNSPECIFIED 04/27/2018 LEV STEPHENSON MD Ot 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 VENOUS HYPERTENSION 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 04/27/2018 LEV STEPHENSON MD Ot J44.9 CHRONIC OBSTRUCTIVE PULMONARY DISEASE, U 04/27/2018 LEV STEPHENSON MD Ot K21.9 GASTRO-ESOPHAGEAL REFLUX DISEASE WITHOUT 04/27/2018 LEV STEPHENSON MD Ot R60.0 LOCALIZED EDEMA 04/27/2018 LEV STEPHENSON MD Ot Z82.49 FAMILY HX OF ISCHEM HEART DIS AND OTH DI 04/27/2018 LEV STEPHENSON MD Ot Z87.19 PERSONAL HISTORY OF OTHER DISEASES OF TH 04/27/2018 LEV STEPHENSON MD, Ot Z87.440 PERSONAL HISTORY OF URINARY (TRACT) INFE 04/27/2018 LEV STEPHENSON MD Ot Z90.710 ACQUIRED ABSENCE OF BOTH CERVIX AND UTER 04/27/2018 LEV STEPHENSON MD Ot Z91.19 PATIENT'S NONCOMPLIANCE W OT MEDICAL TR 04/27/2018 LEV STEPHENSON MD, Ot Z98.51 TUBAL LIGATION STATUS 04/27/2018 LEV STEPHENSON MD, Ot Z98.890 OTHER SPECIFIED POSTPROCEDURAL STATES 04/29/2018 LEV STEPHENSON MD, Ot F31.9 BIPOLAR DISORDER, UNSPECIFIED 04/29/2018 LEV STEPHENSON MD, Ot F41.9 ANXIETY DISORDER, UNSPECIFIED 04/29/2018 LEV STEPHENSON MD Ot G40.909 EPILEPSY, UNSP, NOT INTRACTABLE, WITHOUT 04/29/2018 LEV STEPHENSON MD Ot G43.909 MIGRAINE, UNSP, NOT INTRACTABLE, WITHOUT 04/29/2018 LEV STEPHENSON MD Ot G47.30 SLEEP APNEA, UNSPECIFIED 04/29/2018 LEV STEPHENSON MD Ot I10 ESSENTIAL (PRIMARY) HYPERTENSION 04/29/2018 LEV STEPHENSON MD Ot I73.9 PERIPHERAL VASCULAR DISEASE, UNSPECIFIED 04/29/2018 LEV STEPHENSON MD Ot 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 VENOUS HYPERTENSION W/O COMP OF 04/29/2018 LEV STEPHENSON MD Ot J44.9 CHRONIC OBSTRUCTIVE PULMONARY DISEASE, U 04/29/2018 LEV STEPHENSON MD Ot K21.9 GASTRO-ESOPHAGEAL REFLUX DISEASE WITHOUT 04/29/2018 LEV STEPHENSON MD Ot R60.0 LOCALIZED EDEMA 04/29/2018 LEV STEPHENSON MD Ot Z82.49 FAMILY HX OF ISCHEM HEART DIS AND OTH DI 04/29/2018 LEV STEPHENSON MD Ot Z87.19 PERSONAL HISTORY OF OTHER DISEASES OF TH 04/29/2018 LEV STEPHENSON MD, Ot Z87.440 PERSONAL HISTORY OF URINARY (TRACT) INFE 04/29/2018 LEV STEPHENSON MD Ot Z90.710 ACQUIRED ABSENCE OF BOTH CERVIX AND UTER 04/29/2018 LEV STEPHENSON MD, Ot Z91.19 PATIENT'S NONCOMPLIANCE W [facility] MED[facility] TR 04/29/2018 LEV STEPHENSON MD, Ot Z98.51 TUBAL LIGATION STATUS 04/29/2018 LEV STEPHENSON MD, Ot Z98.890 OTHER SPECIFIED POSTPROCEDURAL STATES Procedures There is no data. Results Test Result Range Complete blood count (CBC) with automated white blood cell (WBC) differential - 12/28/16 01:08 Blood leukocytes automated count (number/volume) 12.4 10*3/uL 4.3-11.0 Blood erythrocytes automated count (number/volume) 4.58 10*6/uL 4.35-5.85 Venous blood hemoglobin measurement (mass/volume) 14.2 g/dL 11.5-16.0 Blood hematocrit (volume fraction) 44 % 35-52 Automated erythrocyte mean corpuscular volume 96 [foz_us] 80-99 Automated erythrocyte mean corpuscular hemoglobin (mass per erythrocyte) 31 pg 25-34 Automated erythrocyte mean corpuscular hemoglobin concentration measurement ( mass/volume) 32 g/dL 32-36 Automated erythrocyte distribution width ratio 14.2 % 10.0-14.5 Automated blood platelet count (count/volume) 272 10*3/uL 130-400 Automated blood platelet mean volume measurement 10.2 [foz_us] 7.4-10.4 Automated blood neutrophils/100 leukocytes 51 % 42-75 Automated blood lymphocytes/100 leukocytes 38 % 12-44 Blood monocytes/100 leukocytes 9 % 0-12 Automated blood eosinophils/100 leukocytes 2 % 0-10 Automated blood basophils/100 leukocytes 0 % 0-10 Blood neutrophils automated count (number/volume) 6.3 10*3 1.8-7.8 Blood lymphocytes automated count (number/volume) 4.7 10*3 1.0-4.0 Blood monocytes automated count (number/volume) 1.1 10*3 0.0-1.0 Automated eosinophil count 0.3 10*3/uL 0.0-0.3 Automated blood basophil count (count/volume) 0.1 10*3/uL 0.0-0.1 PT panel in platelet poor plasma by coagulation assay - 12/28/16 01:08 Prothrombin time (PT) in platelet poor plasma by coagulation assay 12.0 s 12.2-14.7 INR in platelet poor plasma or blood by coagulation assay 0.9 0.8-1.4 Activated partial thromboplastin time (aPTT) in platelet poor plasma bycoagulation assay - 12/28/16 01:08 Activated partial thromboplastin time (aPTT) in platelet poor plasma bycoagulation assay 26 s 24-35 Comprehensive metabolic panel - 12/28/16 01:08 Serum or plasma sodium measurement (moles/volume) 144 mmol/L 135-145 Serum or plasma potassium measurement (moles/volume) 3.7 mmol/L 3.6-5.0 Serum or plasma chloride measurement (moles/volume) 111 mmol/L 98-107 Carbon dioxide 22 mmol/L 21-32 Serum or plasma anion gap determination (moles/volume) 11 mmol/L 5-14 Serum or plasma urea nitrogen measurement (mass/volume) 16 mg/dL 7-18 Serum or plasma creatinine measurement (mass/volume) 0.68 mg/dL 0.60-1.30 Serum or plasma urea nitrogen/creatinine mass ratio 24 NRG Serum or plasma creatinine measurement with calculation of estimated glomerular filtration rate > NRG Serum or plasma glucose measurement (mass/volume) 101 mg/dL 70-105 Serum or plasma calcium measurement (mass/volume) 8.5 mg/dL 8.5-10.1 Serum or plasma total bilirubin measurement (mass/volume) 0.2 mg/dL 0.1-1.0 Serum or plasma alkaline phosphatase measurement (enzymatic activity/volume) 59 U/L 40-136 Serum or plasma aspartate aminotransferase measurement (enzymatic activity/ volume) 10 U/L 5-34 Serum or plasma alanine aminotransferase measurement (enzymatic activity/volume ) 13 U/L 0-55 Serum or plasma protein measurement (mass/volume) 6.1 g/dL 6.4-8.2 Serum or plasma albumin measurement (mass/volume) 3.7 g/dL 3.2-4.5 Magnesium - 12/28/16 01:08 Magnesium 2.3 mg/dL 1.8-2.4 Serum or plasma troponin i.cardiac measurement (mass/volume) - 12/28/16 01:08 Serum or plasma troponin i.cardiac measurement (mass/volume) < ng/ mL <0.30 Myoglobin, serum - 12/28/16 01:08 Myoglobin, serum 14.0 ng/mL 10.0-92.0 Serum or plasma lithium measurement (moles/volume) - 12/28/16 01:08 BNP level 33.7 pg/mL <100.0 Serum or plasma amylase measurement (enzymatic activity/volume) - 12/28/16 01: 08 Serum or plasma amylase measurement (enzymatic activity/volume) 28 U /L 25-125 Lipase - 12/28/16 01:08 Lipase 25 U/L 8-78 Fibrin D-dimer FEU measurement in platelet poor plasma (mass/volume) - 01:08 Fibrin D-dimer FEU measurement in platelet poor plasma (mass/volume) 0.30 ug/mL 0.00-0.49 Serum or plasma troponin i.cardiac measurement (mass/volume) - 12/28/16 03:07 Serum or plasma troponin i.cardiac measurement (mass/volume) < ng/ mL <0.30 Myoglobin, serum - 12/28/16 03:07 Myoglobin, serum 15.4 ng/mL 10.0-92.0 Encounters ACCT No. Visit Date/Time Discharge Status Pt. Type Provider Facility Loc./Unit Complaint [id number] 04/27/2018 18:03:00 04/27/2018 19:45:00 DIS Emergency LEV STEPHENSON MD [facility] ER L LEG SWELLING [id number] 12/28/2016 00:29:00 12/28/2016 04:16:00 DIS Emergency BRIANA FERGUSON MD [facility] ER SWOLLEN L FOOT CHEST PAIN HEAD PAIN BP [id number] 07/02/2016 10:14:00 07/02/2016 11:42:00 DIS Emergency OMARI PEDRO APRN [facility] ER MIGRAINE HEAD ITCHING [id number] 04/28/2016 07:52:00 04/28/2016 10:00:00 DIS Outpatient RANDAL LOUIS DO [facility] SDC BLOOD IN STOOL [id number] 04/22/2016 05:38:00 04/22/2016 14:50:00 DIS Outpatient RANDAL LOUIS DO [facility] PREOP BLOOD IN STOOL [id number] 03/18/2016 18:21:00 03/18/2016 20:30:00 DIS Emergency OMARI PEDRO PARKING ENFORCEMENT MANAGER [facility] ER NECK PAIN [id number] 03/01/2016 16:50:00 03/01/2016 19:26:00 DIS Emergency RICHIE DEVLIN DO [facility] ER RECTAL BLEEDING [id number] 12/30/2015 12:38:00 12/30/2015 23:59:59 CLS Outpatient RAMSEY FINELY MD [facility] LAB MUSCLE PAIN [id number] 11/01/2015 17:46:00 11/01/2015 20:39:00 DIS Emergency IVIS CALL MD [facility] ER FLU SYMPTOMS [id number] 10/25/2015 13:14:00 10/25/2015 16:20:00 DIS Emergency OMARI PEDRO APRN [facility] ER SEIZURE/ELEV BP [id number] 10/01/2015 10:02:00 10/03/2015 16:30:00 DIS Inpatient RAMSEY FINLEY MD [facility] 4TH MASSIVE EDEMA [id number] 09/25/2015 09:52:00 09/25/2015 23:59:59 CLS Outpatient GURWINDER GODWIN MD [facility] RAD PAIN IN KNEE [id number] 08/19/2015 09:45:00 08/21/2015 16:50:00 DIS Inpatient RAMSEY FINLEY MD [facility] 4TH SEVERE EDEMA,SOB [id number] 07/11/2015 13:07:00 07/11/2015 15:00:00 DIS Outpatient PRISCA BOSWELL APRN [facility] WOUNDCARE [id number] 05/21/2015 15:30:00 05/21/2015 23:59:59 CLS Outpatient JIMI TORRES MD [facility] LABNPT (R) LOWER LEG ABSCESS [id number] 04/17/2015 22:10:00 04/17/2015 23:51:00 DIS Emergency BRIANA FERGUSNO MD [facility] ER R LEG PAIN [id number] 03/25/2015 23:09:00 03/26/2015 01:08:00 DIS Emergency IVIS CALL MD [facility] ER POSS HEAT STROKE, MIGRAINE [id number] 03/22/2015 13:13:00 03/22/2015 23:59:59 CLS Outpatient MALIA SANDOVAL, RAMSEY Yan [facility] RAD EDEMA BILAT 3+ [id number] 02/17/2015 19:12:00 02/17/2015 21:32:00 DIS Emergency ARISTIDES EVERETT [facility] ER HEADACHE [id number] 02/07/2015 09:14:00 02/07/2015 09:53:00 DIS Emergency BRIANA FERGUSON MD [facility] ER LEFT EAR PAIN/ SWELLING [id number] 01/12/2015 18:05:00 01/12/2015 18:56:00 DIS Emergency BRIANA FERGUSON MD [facility] ER COMBS [id number] 01/01/2015 19:18:00 01/01/2015 20:45:00 DIS Emergency ARISTIDES EVERETT [facility] ER BACK INJ/PAIN [id number] 11/28/2014 19:37:00 11/28/2014 23:03:00 DIS Emergency ARISTIDES EVERETT [facility] ER L LEG SWELLING [id number] 05/21/2014 21:33:00 05/21/2014 22:33:00 DIS Emergency IVIS CALL MD [facility] ER MIGRAINE [id number] 11/03/2013 21:00:00 11/04/2013 06:50:00 DIS Outpatient EDY NAVARRO MD [facility] SLEEP OBSTRUCTIVE APNEA [id number] 09/20/2013 11:03:00 09/20/2013 23:59:59 CLS Outpatient RICHIE VÁSQUEZ MD [facility] RAD ABNORMAL SONO, MULTIPLE NODULES [id number] 07/09/2013 10:05:00 07/09/2013 12:57:00 DIS Emergency IVIS CALL MD [facility] ER SEIZURE [id number] 02/01/2013 04:02:00 02/01/2013 04:55:00 DIS Emergency CLAUSMook LAWSON RICHIE Dianna [facility] ER ALLERGIC REACTION, SWELLING OF HANDS LEGS [id number] 12/16/2012 20:05:00 12/17/2012 06:40:00 DIS Outpatient ERIK BARFIELD MD [facility] SLEEP SHANT [id number] 11/24/2015 21:25:00 Document Registration [id number] 11/28/2014 19:37:00 Document Registration [id number] 11/28/2014 19:37:00 Document Registration [id number] 10/11/2014 05:36:00 Document Registration [id number] 11/04/2012 20:04:00 Document Registration [id number] 09/15/2012 21:58:00 Document Registration [id number] 07/13/2012 13:18:00 Document Registration [id number] 03/22/2012 16:37:00 Document Registration [id number] 02/24/2012 23:27:00 Document Registration [id number] 08/27/2011 12:41:00 Document Registration [id number] 02/25/2010 09:28:00 Document Registration [id number] 01/01/2010 18:11:00 Document Registration [id number] 11/20/2009 07:22:00 Document Registration [id number] 05/22/2015 14:37:15 ACT Document Registration
[2018-07-14] MEDS ORDERED: METH750T3 (23:58)
[2018-07-14] MEDS ORDERED: NORT25CA (23:58)
[2018-07-14] MEDS ORDERED: HYDR30CR69 (23:58)
[2018-07-14] MEDS ORDERED: POTA20TA15 (23:58)
[2018-07-14] MEDS ORDERED: HYDR25TA4 (23:58)
[2018-07-14] MEDS ORDERED: TOPI50TA13 (23:58)
[2018-07-15] MEDS ORDERED: PERM60CR4 TP (00:09)
--- NOTE | 2018-07-15 00:09 | ED Integumentary General ---
General Chief Complaint: Skin/Wound Problems Stated Complaint: POSS SCABIES Nursing Triage Note: bilateral arm/scalp rash/itching, reports scabies exposure. Source: patient Exam Limitations: no limitations History of Present Illness Date Seen by Provider: Jul 14, 2018 Time Seen by Provider: 23:57 Initial Comments Here with report of exposure to person with scabies. Report itching and bumps on her arm now concerned that she has scabies. Denies other concerns. Timing/Duration: yesterday, getting worse Severity: moderate Location: extremities Possible Cause: insect bite Associated Symptoms: No blisters; change in skin texture; No edema; rash Allergies and Home Medications Allergies Coded Allergies: No Known Drug Allergies (Unverified , 04/22/16) Home Medications Carbamazepine 200 Mg Tablet, 400 MG PO BID, (Reported) Divalproex Sodium 500 Mg Tablet.dr, 500 MG PO BID, (Reported) Furosemide 20 Mg Tablet, 20 MG PO DAILY, (Reported) Metoprolol Tartrate 25 Mg Tablet, 25 MG PO BID Prescribed by: BRIANA FERGUSON on 12/28/16 0402 Venlafaxine HCl 150 Mg Cap.er.24h, 150 MG PO DAILY, (Reported) Patient Home Medication List Home Medication List Reviewed: Yes Review of Systems Review of Systems Constitutional: see HPI; No chills, No fever Past Cllzyam-Jhghtk-Jqomij Hx Patient Social History Alcohol Use: Denies Use Recreational Drug Use: No Smoking Status: Current Everyday Smoker Type Used: Cigarettes 2nd Hand Smoke Exposure: Yes Recent Foreign Travel: No Contact w/Someone Who Travel: No Recent Infectious Disease Expo: No Recent Hopitalizations: No Immunizations Up To Date Tetanus Booster (TDap): Unknown Seasonal Allergies Seasonal Allergies: Yes Past Medical History Surgeries: Yes (HIATAL HERNIA REPAIR,PARTIAL HYSTERECTOMY ) Abdominal, Gallbladder, Hysterectomy, Oophorectomy, 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 Respiratory: Yes (SLEEP APNEA DOESNT USE CPAP, ASTHMA) Sleep Apnea, COPD Currently Using CPAP: No (Has not used in 1yr- was taken due to noncompliance) Currently Using BIPAP: No Cardiac: Yes (MURMUR) Chronic Edema/Swelling, Hypertension, Peripheral Vascular Neurological: Yes (last Seizure 2-3months ago.) Headaches /Migraines, Seizure Disorder : No Reproductive Disorders: No Female Reproductive Disorders: Denies 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: Hysterectomy Sexually Transmitted Disease: No HIV/AIDS: No UTI-Chronic Gastrointestinal: No Gastroesophageal Reflux, Hiatal Hernia Musculoskeletal: Yes (LYMPHEDEMA) Arthritis Endocrine: No Loss of Vision: Denies Hearing Impairment: Denies Cancer: No Psychosocial: Yes Anxiety, Bipolar, Depression Integumentary: No Blood Disorders: No Adverse Reaction/Blood Tranf: No Family Medical History Reviewed Nursing Family Hx Hypertension G8 SISTER Myocardial infarction 19 FATHER ( at the age of 50yrs old due to a Heart Attack) Heart Disease, Hypertension Physical Exam Vital Signs Vital Signs - First Documented 07/14/18 23:50 Temp 96.1 Pulse 84 Resp 18 B/P (MAP) 154/96 (115) Pulse Ox 97 O2 Delivery Room Air Capillary Refill : Less Than 3 Seconds General Appearance: WD/WN, no apparent distress Cardiovascular: regular rate, rhythm, no murmur Respiratory: lungs clear, normal breath sounds Skin: warm/dry Skin Problem Location: upper extremities Skin Problem Character: rash, other (small little papule lesions in multiple areas on the arms concerning for possible scabies) Progress/Results/Core Measures Results/Orders Vital Signs/I&O 07/14/18 23:50 Temp 96.1 Pulse 84 Resp 18 B/P (MAP) 154/96 (115) Pulse Ox 97 O2 Delivery Room Air Blood Pressure Mean: 115 Progress Progress Note : Progress Note Seen and evaluated. Has history of scabies exposure and some lesions have appearance of scabies type lesions so we will go ahead and treat for that. Discharged home with return precautions. Patient verbalize understanding instructions and agreement with plan. Departure Impression Primary Impression: Scabies Disposition: 01 HOME, SELF-CARE Condition: Stable Departure-Patient Inst. Decision time for Depature: 00:06 Referrals: ROHINI SAMAYOA APRN (PCP/Family) Primary Care Physician Patient Instructions: Scabies (DC) Add. Discharge Instructions: All discharge instructions reviewed with patient and/or family. Voiced understanding. Use medication as directed. You may also take oral Benadryl one or 2 tablets every 6 hours as needed for itching. Follow-up with your DrManuel in a few days for recheck. Return for worse pain, swelling, fever or other concerns as needed. Scripts Permethrin (Permethrin) 60 Gm Cream..g. 60 GM TP ONCE, #1 TUBE 1 Refill May repeat in one to 2 weeks if infestation persists. Prov: BRIANA FERGUSON MD 07/15/18 BRIANA FERGUSON MD Jul 15, 2018 00:09
[2018-07-15 00:13] VITALS: BP 154/96
== END 2018-07-15 00:13 | disposition home or self-care (01) ==
LOC: EDUNIT# 23:37 → ER 23:41
DX: B86 Scabies (principal); G47.30 Sleep apnea, unspecified; J44.9 Chronic obstructive pulmonary disease, unspecified; I10 Essential (primary) hypertension; I73.9 Peripheral vascular disease, unspecified; G43.909 Migraine, unspecified, not intractable, without status migrainosus; G40.909 Epilepsy, unspecified, not intractable, without status epilepticus; F41.9 Anxiety disorder, unspecified; F32.9 Major depressive disorder, single episode, unspecified; K21.9 Gastro-esophageal reflux disease without esophagitis; F17.210 Nicotine dependence, cigarettes, uncomplicated; Z90.711 Acquired absence of uterus with remaining cervical stump; Z98.51 Tubal ligation status; Z82.49 Family history of ischemic heart disease and other diseases of the circulatory system; Z87.19 Personal history of other diseases of the digestive system; Z87.448 Personal history of other diseases of urinary system
CPT/HCPCS: 99282

== ENCOUNTER 2018-08-10 11:55 | Emergency (ER) | payer MEDICARE, MEDICAID ==
[~2018-08-10] VITALS: Ht 162.6 cm; Wt 136.1 kg
[~2018-08-10 11:55] MED LIST changes: +HYDR25TA4; +HYDR30CR69; +METH750T3; +NORT25CA; +PERM60CR4 TP; +POTA20TA15; +TOPI50TA13
--- OUTSIDE RECORDS SUMMARY | 2018-08-10 12:06 | XMS REPORT | Continuity of Care Document ---
Author Author [facility] Organization [facility] Address Unknown Phone Unavailable Allergies Active Description Code Type Severity Reaction Onset Reported/Identified Relationship to Patient Clinical Status Yes No Known Drug Allergies [id number] Drug Allergy Mild N/A 05/19/2009 Yes No Known Drug Allergies [id number] Drug Allergy Unknown N/A 04/22/2016 Medications There [...] SANDOVAL, IVIS Escamilla Ot 276.8 HYPOPOTASSEMIA 07/09/2013 ONEYDA SANDOVAL, IVIS Escamilla Ot 345.90 EPILEPSY UNSPEC W/O MENTION INTRACTABLE [...] EVERETT Ot 847.2 SPRAIN LUMBAR REGION 01/01/2015 ARISTIDES EVERETT Ot 959.19 OTH INJURY OF OTHER [...] OF RIGHT LOWER LIMB 07/11/2015 PRISCA BOSWELL Farrah BARTHOLOMEW Ot Z68.43 BODY MASS INDEX (BMI) 50-59.9 [...] ESSENTIAL (PRIMARY) HYPERTENSION 10/03/2015 MALIA SANDOVAL, RAMSEY R Ot K21.9 GASTRO-ESOPHAGEAL REFLUX DISEASE WITHOUT 10/03/2015 [...] I10 ESSENTIAL (PRIMARY) HYPERTENSION 03/18/2016 OMARI PEDRO DIRECTOR OF CARDIOPULMONARY SERVICES Ot R20.0 ANESTHESIA OF SKIN 03/18/2016 OMARI PEDRO DIRECTOR OF CARDIOPULMONARY SERVICES Ot R20.2 PARESTHESIA OF SKIN 03/19/2016 OMARI PEDRO DIRECTOR OF CARDIOPULMONARY SERVICES Ot I10 ESSENTIAL (PRIMARY) HYPERTENSION 03/19/2016 OMARI PEDRO APRN Ot R20.0 ANESTHESIA OF SKIN 03/19/2016 OMARI PEDRO DIRECTOR OF CARDIOPULMONARY SERVICES Ot R20.2 PARESTHESIA OF SKIN 04/22/2016 RANDAL LOUIS DO Ot K92.1 MELENA 04/22/2016 RANDAL LOUIS DO Ot Z01.818 ENCOUNTER FOR OTHER PREPROCEDURAL EXAMIN 04/23/2016 RANDAL LOUIS DO Ot K92.1 MELENA 04/23/2016 RANDAL LOUIS DO Ot Z01.818 ENCOUNTER FOR OTHER PREPROCEDURAL EXAMIN 04/28/2016 THALIA SANDOVAL, RICHIE A Ot 241.1 NONTOX MULTINODUL GOITER 04/28/2016 MALIA SANDOVAL, RAMSEY Yan Ot 782.3 EDEMA 04/28/2016 MELISSA SANDOVAL, JIMI Ot 682.6 CELLULITIS OF LEG 04/28/2016 CITLALI SANDOVAL, GURWINDER Huerta Ot M17.11 UNILATERAL PRIMARY OSTEOARTHRITIS, RIGHT 04/28/2016 MALIA SANDOVAL, RAMSEY R Ot M79.1 MYALGIA 04/28/2016 [place] RANDAL LAWSON Ot K63.5 POLYP OF COLON 05/01/2016 [place] RANDAL LAWSON Ot K63.5 POLYP OF COLON 05/01/2016 [place] RANDAL LAWSON Ot K63.5 POLYP OF COLON 07/02/2016 OMARI PEDRO DIRECTOR OF CARDIOPULMONARY SERVICES Ot G43.909 MIGRAINE, UNSP, NOT INTRACTABLE, WITHOUT 07/02/2016 OMARI PEDRO DIRECTOR OF CARDIOPULMONARY SERVICES Ot I10 ESSENTIAL (PRIMARY) HYPERTENSION 07/02/2016 OMARI PEDRO DIRECTOR OF CARDIOPULMONARY SERVICES Ot J44.9 CHRONIC OBSTRUCTIVE PULMONARY DISEASE, U 07/02/2016 OMARI PEDRO DIRECTOR OF CARDIOPULMONARY SERVICES Ot L30.9 DERMATITIS, UNSPECIFIED 07/02/2016 OMARI PEDRO DIRECTOR OF CARDIOPULMONARY SERVICES Ot Z79.899 OTHER SALES AND MARKETING SPECIALIST (CURRENT) DRUG THERAPY 07/11/2016 OMARI PEDRO DIRECTOR OF CARDIOPULMONARY SERVICES Ot G43.909 MIGRAINE, UNSP, NOT INTRACTABLE, WITHOUT 07/11/2016 OMARI PEDRO DIRECTOR OF CARDIOPULMONARY SERVICES Ot I10 ESSENTIAL (PRIMARY) HYPERTENSION 07/11/2016 OMARI PEDRO DIRECTOR OF CARDIOPULMONARY SERVICES Ot J44.9 CHRONIC OBSTRUCTIVE PULMONARY DISEASE, U 07/11/2016 OMARI PEDRO DIRECTOR OF CARDIOPULMONARY SERVICES Ot L30.9 DERMATITIS, UNSPECIFIED 07/11/2016 OMARI PEDRO DIRECTOR OF CARDIOPULMONARY SERVICES Ot Z79.899 OTHER CARE HOME (CURRENT) DRUG THERAPY 08/06/2016 THALIA SANDOVAL, RICHIE A Ot 241.1 NONTOX MULTINODUL GOITER 08/06/2016 MALIA SANDOVAL, RAMSEY Yan Ot 782.3 EDEMA 08/06/2016 MELISSA SANDOVAL, JIMI Ot 682.6 CELLULITIS OF LEG 08/06/2016 CITLALI SANDOVAL, GURWINDER Huerta Ot M17.11 UNILATERAL PRIMARY OSTEOARTHRITIS, RIGHT 08/06/2016 MALIA SANDOVAL, RAMSEY R Ot M79.1 MYALGIA 12/28/2016 BRIANA FERGUSON MD Ot F17.210 NICOTINE DEPENDENCE, CIGARETTES, UNCOMPL 12/28/2016 BRIANA FERGUSON MD Ot I10 ESSENTIAL (PRIMARY) HYPERTENSION 12/28/2016 BRIANA FERGUSON MD Ot M54.2 CERVICALGIA 12/28/2016 BRIANA FERGUSON MD Ot R07.9 CHEST PAIN, UNSPECIFIED 12/28/2016 BRIANA FERGUSON MD Ot R51 HEADACHE 12/28/2016 BRIANA FERGUSON MD, Ot Z79.899 OTHER SALES AND MARKETING SPECIALIST (CURRENT) DRUG THERAPY 12/30/2016 BRIANA FERGUSON MD Ot F17.210 NICOTINE DEPENDENCE, CIGARETTES, UNCOMPL 12/30/2016 BRIANA FERGUSON MD Ot I10 ESSENTIAL (PRIMARY) HYPERTENSION 12/30/2016 BRIANA FERGUSON MD Ot M54.2 CERVICALGIA 12/30/2016 BRIANA FERGUSON MD, Ot R07.9 CHEST PAIN, UNSPECIFIED 12/30/2016 BRIANA FERGUSON MD Ot R51 HEADACHE 12/30/2016 BRIANA FERGUSON MD, Ot Z79.899 OTHER SALES AND MARKETING SPECIALIST (CURRENT) DRUG THERAPY 04/27/2018 LEV STEPHENSON MD [...] DIS AND OTH DI 04/27/2018 LEV STEPHENSON MD, Ot Z87.19 PERSONAL HISTORY OF OTHER DISEASES OF TH 04/27/2018 LEV STEPHENSNO MD, Ot Z87.440 PERSONAL HISTORY OF URINARY [...] ISCHEM HEART DIS AND OTH DI 04/29/2018 LVE STEPHENSON MD, Ot Z87.19 PERSONAL HISTORY OF OTHER DISEASES OF TH 04/29/2018 LEV STEPHENSON MD, Ot Z87.440 PERSONAL HISTORY OF URINARY (TRACT) INFE 04/29/2018 LEV STEPHENSON MD Ot Z90.710 ACQUIRED ABSENCE OF BOTH CERVIX AND UTER 04/29/2018 SEEMA SANDOVAL, LEV Bustamante Ot Z91.19 PATIENT'S NONCOMPLIANCE W OTH MEDICAL TR 04/29/2018 LEV STEPHENSON MD Ot Z98.51 TUBAL LIGATION STATUS 04/29/2018 LEV STEPHENSON MD Ot Z98.890 OTHER SPECIFIED POSTPROCEDURAL STATES 07/14/2018 THALIA SANDOVAL, RICHIE Corrales Ot 241.1 NONTOX MULTINODUL GOITER 07/14/2018 MALIA SANDOVAL, RAMSEY Yan Ot 782.3 EDEMA 07/14/2018 MELISSA SANDOVAL, JIMI Ot 682.6 CELLULITIS OF LEG 07/14/2018 CITLALI SANDOVAL, GURWINDER Huerta Ot M17.11 UNILATERAL PRIMARY OSTEOARTHRITIS, RIGHT 07/14/2018 MALIA SANDOVAL, RAMSEY Yan Ot M79.1 MYALGIA 07/15/2018 BRIANA FERGUSON MD Ot B86 SCABIES 07/15/2018 BRIANA FERGUSON MD Ot F17.210 NICOTINE DEPENDENCE, CIGARETTES, UNCOMPL 07/15/2018 BRIANA FERGUSON MD Ot F32.9 MAJOR DEPRESSIVE DISORDER, SINGLE EPISOD 07/15/2018 BRIANA FERGUSON MD Ot F41.9 ANXIETY DISORDER, UNSPECIFIED 07/15/2018 BRIANA FERGUSON MD Ot G40.909 EPILEPSY, UNSP, NOT INTRACTABLE, WITHOUT 07/15/2018 BRIANA FERGUSON MD Ot G43.909 MIGRAINE, UNSP, NOT INTRACTABLE, WITHOUT 07/15/2018 BRIANA FERGUSON MD Ot G47.30 SLEEP APNEA, UNSPECIFIED 07/15/2018 BRIANA FERGUSON MD Ot I10 ESSENTIAL (PRIMARY) HYPERTENSION 07/15/2018 BRIANA FERGUSON MD Ot I73.9 PERIPHERAL VASCULAR DISEASE, UNSPECIFIED 07/15/2018 BRIANA FERGUSON MD Ot J44.9 CHRONIC OBSTRUCTIVE PULMONARY DISEASE, U 07/15/2018 BRIANA FERGUSON MD Ot K21.9 GASTRO-ESOPHAGEAL REFLUX DISEASE WITHOUT 07/15/2018 BRIANA FERGUSON MD Ot L29.9 PRURITUS, UNSPECIFIED 07/15/2018 BRIANA FERGUSON MD Ot Z82.49 FAMILY HX OF ISCHEM HEART DIS AND OTH DI 07/15/2018 BRIANA FERGUSON MD, Ot Z87.19 PERSONAL HISTORY OF OTHER DISEASES OF TH 07/15/2018 BRIANA FERGUSON MD, Ot Z87.448 PERSONAL HISTORY OF OTHER DISEASES OF UR 07/15/2018 BRIANA FERGUSON MD Ot Z90.711 ACQUIRED ABSENCE OF UTERUS WITH REMAININ 07/15/2018 BRIANA FERGUSON MD Ot Z98.51 TUBAL LIGATION STATUS 07/16/2018 THALIA SANDOVAL, RICHIE Corrales Ot 241.1 NONTOX MULTINODUL GOITER 07/16/2018 MALIA SANDOVAL, RAMSEY R Ot 782.3 EDEMA 07/16/2018 MELISSA SANDOVAL, JIMI Ot 682.6 CELLULITIS OF LEG 07/16/2018 CITLALI SANDOVAL, GURWINDER Huerta Ot M17.11 UNILATERAL PRIMARY OSTEOARTHRITIS, RIGHT 07/16/2018 RAMSEY FINLEY MD R Ot M79.1 MYALGIA 07/18/2018 BRIANA FERGUSON MD Ot B86 SCABIES 07/18/2018 BRIANA FERGUSON MD Ot F17.210 NICOTINE DEPENDENCE, CIGARETTES, UNCOMPL 07/18/2018 BRIANA FERGUSON MD Ot F32.9 MAJOR DEPRESSIVE DISORDER, SINGLE EPISOD 07/18/2018 BRIANA FERGUSON MD Ot F41.9 ANXIETY DISORDER, UNSPECIFIED 07/18/2018 BRIANA FERGUSON MD Ot G40.909 EPILEPSY, UNSP, NOT INTRACTABLE, WITHOUT 07/18/2018 BRIANA FERGUSON MD Ot G43.909 MIGRAINE, UNSP, NOT INTRACTABLE, WITHOUT 07/18/2018 BRIANA FERGUSON MD Ot G47.30 SLEEP APNEA, UNSPECIFIED 07/18/2018 BRIANA FERGUSON MD Ot I10 ESSENTIAL (PRIMARY) HYPERTENSION 07/18/2018 BRIANA FERGUSON MD Ot I73.9 PERIPHERAL VASCULAR DISEASE, UNSPECIFIED 07/18/2018 BRIANA FERGUSON MD Ot J44.9 CHRONIC OBSTRUCTIVE PULMONARY DISEASE, U 07/18/2018 BRIANA FERGUSON MD Ot K21.9 GASTRO-ESOPHAGEAL REFLUX DISEASE WITHOUT 07/18/2018 BRIANA FERGUSON MD Ot L29.9 PRURITUS, UNSPECIFIED 07/18/2018 BRIANA FERGUSON MD Ot Z82.49 FAMILY HX OF ISCHEM HEART DIS AND OTH DI 07/18/2018 BRIANA FERGUSON MD, Ot Z87.19 PERSONAL HISTORY OF OTHER DISEASES OF TH 07/18/2018 BRIANA FERGUSON MD, Ot Z87.448 PERSONAL HISTORY OF OTHER DISEASES OF UR 07/18/2018 BRIANA FERGUSON MD, Ot Z90.711 ACQUIRED ABSENCE OF UTERUS WITH REMAININ 07/18/2018 BRIANA FERGUSON MD, Ot Z98.51 TUBAL LIGATION STATUS Procedures There is no data. Results Test [...] Status Pt. Type Provider Facility Loc./Unit Complaint [id number] 07/14/2018 23:41:00 07/15/2018 00:13:00 DIS Emergency BRIANA FERGUSON MD [facility] ER POSS SCABIES [id number] 04/27/2018 18:03:00 04/27/2018 19:45:00 DIS Emergency LEV STEPHENSON MD [facility] ER L LEG SWELLING [id number] 12/28/2016 00:29:00 12/28/2016 04:16:00 DIS Emergency BRIANA FERGUSON MD [facility] ER SWOLLEN L FOOT CHEST PAIN HEAD PAIN BP [id number] 07/02/2016 10:14:00 07/02/2016 11:42:00 DIS Emergency OMARI PEDRO APRN [facility] ER MIGRAINE HEAD ITCHING [id number] 04/28/2016 07:52:00 04/28/2016 10:00:00 DIS Outpatient RANDAL LOUIS DO [facility] SDC BLOOD IN STOOL [id number] 04/22/2016 05:38:00 04/22/2016 14:50:00 DIS Outpatient RANDAL LOUIS DO [facility] PREOP BLOOD IN STOOL [id number] 03/18/2016 18:21:00 03/18/2016 20:30:00 DIS Emergency OMARI PEDRO DIRECTOR OF CARDIOPULMONARY SERVICES [facility] ER NECK PAIN [id number] 03/01/2016 16:50:00 03/01/2016 19:26:00 DIS Emergency RICHIE DEVLIN DO [facility] ER RECTAL BLEEDING [id number] 12/30/2015 12:38:00 12/30/2015 23:59:59 CLS Outpatient RAMSEY FINLEY MD [facility] LAB MUSCLE PAIN [id number] 11/01/2015 17:46:00 11/01/2015 20:39:00 DIS Emergency ONEYDA SANDOVAL, IVIS Escamilla [facility] ER FLU SYMPTOMS [id number] 10/25/2015 13:14:00 10/25/2015 16:20:00 DIS Emergency OMARI PEDRO DIRECTOR OF CARDIOPULMONARY SERVICES [facility] ER SEIZURE/ELEV BP [id number] 10/01/2015 10:02:00 10/03/2015 16:30:00 DIS Inpatient RAMSEY FINLEY MD [facility] 4TH MASSIVE EDEMA [id number] 09/25/2015 09:52:00 09/25/2015 23:59:59 CLS Outpatient GURWINDER GODWIN MD [facility] RAD PAIN IN KNEE [id number] 08/19/2015 09:45:00 08/21/2015 16:50:00 DIS Inpatient RAMSEY FINLEY MD [facility] 4TH SEVERE EDEMA,SOB [id number] 07/11/2015 13:07:00 07/11/2015 15:00:00 DIS Outpatient PRISCA BOSWELL DIRECTOR OF CARDIOPULMONARY SERVICES [facility] WOUNDCARE [id number] 05/21/2015 15:30:00 05/21/2015 23:59:59 CLS Outpatient MELISSA SANDOVAL, JIMI [facility] LABNPT (R) LOWER LEG ABSCESS [id number] 04/17/2015 22:10:00 04/17/2015 23:51:00 DIS Emergency BRIANA FERGUSON MD [facility] ER R LEG PAIN [id number] 03/25/2015 23:09:00 03/26/2015 01:08:00 DIS Emergency ONEYDA SANDOVAL, IVIS Escamilla [facility] ER POSS HEAT STROKE, MIGRAINE [id number] 03/22/2015 13:13:00 03/22/2015 23:59:59 CLS Outpatient MALIA SANDOVAL, RAMSEY Yan [facility] RAD EDEMA BILAT 3+ [id number] 02/17/2015 19:12:00 02/17/2015 21:32:00 DIS Emergency ARISTIDES EVERETT [facility] ER HEADACHE [id number] 02/07/2015 09:14:00 02/07/2015 09:53:00 DIS Emergency BRIANA FERGUSON MD [facility] ER LEFT EAR PAIN/ SWELLING [id number] 01/12/2015 18:05:00 01/12/2015 18:56:00 DIS Emergency BRIANA FERGUSON MD [facility] ER COMBS [id number] 01/01/2015 19:18:00 01/01/2015 20:45:00 DIS Emergency ARISTIDES EVERETT [facility] ER BACK INJ/PAIN [id number] 11/28/2014 19:37:00 11/28/2014 23:03:00 DIS Emergency ARISTIDES EVERETT [facility] ER L LEG SWELLING [id number] 05/21/2014 21:33:00 05/21/2014 22:33:00 DIS Emergency IVIS CALL MD [facility] ER MIGRAINE [id number] 11/03/2013 21:00:00 11/04/2013 06:50:00 DIS Outpatient EDY NAVARRO MD [facility] SLEEP OBSTRUCTIVE APNEA [id number] 09/20/2013 11:03:00 09/20/2013 23:59:59 CLS Outpatient THALIA SANDOVAL, RICHIE Corrales [facility] RAD ABNORMAL SONO, MULTIPLE NODULES [id number] 07/09/2013 10:05:00 07/09/2013 12:57:00 DIS Emergency ONEYDA SANDOVAL, IVIS Escamilla [facility] ER SEIZURE [id number] 02/01/2013 04:02:00 02/01/2013 04:55:00 DIS Emergency CLAUS DO, RICHIE K [facility] ER ALLERGIC REACTION, SWELLING OF HANDS LEGS [id number] 12/16/2012 20:05:00 12/17/2012 06:40:00 DIS Outpatient CAROLYNE SANDOVAL, ERIK Sierra [facility] SLEEP SHANT [id number] 11/24/2015 21:25:00 Document Registration [id number] 11/28/2014 19:37:00 Document Registration [id number] 11/28/2014 19:37:00 Document Registration [id number] 10/11/2014 05:36:00 Document Registration [id number] 11/04/2012 20:04:00 Document Registration [id number] 09/15/2012 21:58:00 Document Registration [id number] 07/13/2012 13:18:00 Document Registration [id number] 03/22/2012 16:37:00 Document Registration [id number] 02/24/2012 23:27:00 Document Registration [id number] 08/27/2011 12:41:00 Document Registration [id number] 02/25/2010 09:28:00 Document Registration [id number] 01/01/2010 18:11:00 Document Registration [id number] 11/20/2009 07:22:00 Document Registration [id number] 05/22/2015 14:37:15 ACT Document Registration
[2018-08-10] MEDS ORDERED: morphine INJ 10 MG/ML 1ML (SYR OR VIAL) IJ ONE (13:15)
--- NOTE | 2018-08-10 13:36 | ED Lower Extremity ---
General Chief Complaint: General Problems/Pain Stated Complaint: L LEG PAIN Nursing Triage Note: PT PRESENTS TO ER WITH COMPLAINT OF LEFT LEG SWELLING AND PAIN. PT STATES SHE HAS LYMPHEDEMA AND HER PAIN STARTED YESTERDAY. DENIES INJURY. STATES SHE HAS BEEN OFF HER HTN, DIURETICS, AND SEIZURE MEDS FOR THE LAST MONTH. Nursing Sepsis Screen: No Definite Risk Source: patient Exam Limitations: no limitations History of Present Illness Date Seen by Provider: Aug 10, 2018 Time Seen by Provider: 13:00 Initial Comments Patient is a 42-year-old female who presents to the emergency room with complaints of left leg swelling and pain that started yesterday. She has lymphedema to her leg chronically but reports increase in swelling. She was seen and evaluated at [facility] Emergency Room last evening and had x-rays of her left knee and was given a subcutaneous injection of Lovenox and discharge with potential blood clot to the left lower extremity. They did write outpatient orders for ultrasound of the leg which she had completed this morning and was told that she did not have a blood clot in her leg. She reports that she really just needs some pain control and they did not provide that. She gave consent to gather records from [facility]. Onset: yesterday Pain/Injury Location: left leg, left knee Method of Injury: unknown Modifying Factors: Worse With Movement Allergies and Home Medications Allergies Coded Allergies: No Known Drug Allergies (Unverified , 04/22/16) Home Medications Carbamazepine 200 Mg Tablet, 400 MG PO BID, (Reported) Divalproex Sodium 500 Mg Tablet.dr, 500 MG PO BID, (Reported) Furosemide 20 Mg Tablet, 20 MG PO DAILY, (Reported) Hydrocodone Bit/Acetaminophen 1 Tab Tab, 1-2 EACH PO Q6H PRN for PAIN-MODERATE Prescribed by: RADHA ALVARENGA on 08/10/18 1342 Metoprolol Tartrate 25 Mg Tablet, 25 MG PO BID Prescribed by: BRIANA FERGUSON on 12/28/16 0402 Permethrin 60 Gm Cream..g., 60 GM TP ONCE May repeat in one to 2 weeks if infestation persists. Prescribed by: BRIANA FERGUSON on 07/15/18 0009 Venlafaxine HCl 150 Mg Cap.er.24h, 150 MG PO DAILY, (Reported) Patient Home Medication List Home Medication List Reviewed: Yes Review of Systems Constitutional: no symptoms reported, see HPI Musculoskeletal: see HPI, joint pain (left knee pain), joint swelling (left lower extremity swelling) All Other Systems Reviewed Negative Unless Noted: Yes Past Uttkxaw-Zchnrc-Tiwnfn Hx Past Med/Social Hx: Reviewed Nursing Past Med/Soc Hx Patient Social History Alcohol Use: Denies Use Recreational Drug Use: No Smoking Status: Current Everyday Smoker Type Used: Cigarettes 2nd Hand Smoke Exposure: Yes Recent Foreign Travel: No Contact w/Someone Who Travel: No Recent Infectious Disease Expo: No Recent Hopitalizations: No Immunizations Up To Date Tetanus Booster (TDap): Unknown Seasonal Allergies Seasonal Allergies: Yes Past Medical History Surgeries: Yes (HIATAL HERNIA REPAIR,PARTIAL HYSTERECTOMY ) Abdominal, Gallbladder, Hysterectomy, Oophorectomy, 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 Respiratory: Yes (SLEEP APNEA DOESNT USE CPAP, ASTHMA) Sleep Apnea, COPD Currently Using CPAP: No (Has not used in 1yr- was taken due to noncompliance) Currently Using BIPAP: No Cardiac: Yes (MURMUR) Chronic Edema/Swelling, Hypertension, Peripheral Vascular Neurological: Yes (last Seizure 2-3months ago.) Headaches /Migraines, Seizure Disorder Reproductive Disorders: No Female Reproductive Disorders: Denies 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 Sexually Transmitted Disease: No HIV/AIDS: No UTI-Chronic Gastrointestinal: No Gastroesophageal Reflux, Hiatal Hernia Musculoskeletal: Yes (LYMPHEDEMA) Arthritis Endocrine: No Loss of Vision: Denies Hearing Impairment: Denies Cancer: No Psychosocial: Yes Anxiety, Bipolar, Depression Integumentary: No Blood Disorders: No Adverse Reaction/Blood Tranf: No Family Medical History Reviewed Nursing Family Hx Hypertension G8 SISTER Myocardial infarction 19 FATHER ( at the age of 50yrs old due to a Heart Attack) Heart Disease, Hypertension Physical Exam Vital Signs Vital Signs - First Documented 08/10/18 12:01 Pulse 90 Resp 20 B/P (MAP) 173/128 (143) Pulse Ox 97 O2 Delivery Room Air Capillary Refill : Less Than 3 Seconds Height, Weight, BMI Height: 5'4.00" Weight: 300lbs. 12.0oz. [phone]; 56.8 BMI Method:Stated General Appearance: WD/WN, no apparent distress, obese HEENT: PERRL/EOMI Cardiovascular: normal peripheral pulses, regular rate, rhythm, no edema, no gallop, no JVD, no murmur Respiratory: chest non-tender, lungs clear, normal breath sounds, no respiratory distress, no accessory muscle use Legs: right leg non-tender, right leg normal inspection; bilateral leg normal range of motion, bilateral leg no evidence of injury; left leg soft tissue tenderness, left leg swelling (moderate swelling to the left lower extremity) Knees: left knee pain Neurologic/Psychiatric: alert, normal mood/affect, oriented x 3 Skin: normal color, warm/dry Progress/Results/Core Measures Results/Orders My Orders Orders - RADHA ALVARENGA Morphine Injection (Morphine Injection (08/10/18 13:15) Medications Given in ED Current Medications Medications Dose Ordered Sig/[place] Route Start Time Stop Time Status Last Admin Dose Admin Morphine Sulfate 10 mg ONCE ONCE IJ 08/10/18 13:15 08/10/18 13:16 DC 08/10/18 13:21 10 MG Vital Signs/I&O 08/10/18 08/10/18 12:01 13:51 Pulse 90 90 Resp 20 18 B/P (MAP) 173/128 (143) 165/102 (123) Pulse Ox 97 97 O2 Delivery Room Air Room Air Blood Pressure Mean: 143 Progress Progress Note : Time: 13:40 Progress Note I have seen and evaluated the patient. She is feeling better after pain medication. I did receive her records from [facility] and she is negative for a blood clot in the left lower extremity. She agrees with plans for discharge, plans for close follow-up with primary care provider, return precautions were given. Departure Impression Primary Impression: Pain of left lower extremity Disposition: HOME, SELF-CARE Condition: Stable/Unchanged Departure-Patient Inst. Decision time for Depature: 13:41 Referrals: ROHINI SAMAYOA APRN (PCP/Family) Primary Care Physician Patient Instructions: Knee Pain (DC) Add. Discharge Instructions: You may use ibuprofen and Tylenol as directed by the bottle for pain relief. For pain unrelieved by medications you may use prescription strength pain medicine. Call today for appointment time to schedule her primary care visit for further evaluation. Return back to the emergency room for any worsening symptoms or concerns as needed. All discharge instructions reviewed with patient and/or family. Voiced understanding. Scripts Hydrocodone Bit/Acetaminophen (Hydrocodone/Acetaminophen 5/325mg Tablet) 1 Tab Tab 1-2 EACH PO Q6H PRN for PAIN-MODERATE MDD 10, #20 TAB Prov: RADHA ALVARENGA 08/10/18 RADHA ALVARENGA Aug 10, 2018 13:36
[2018-08-10] MEDS ORDERED: ACHD5005 PO (13:42)
[2018-08-10 13:51] VITALS: BP 165/102
== END 2018-08-10 14:00 | disposition home or self-care (01) ==
LOC: EDUNIT# 11:55 → ER 11:55
DX: M79.662 Pain in left lower leg (principal); J44.9 Chronic obstructive pulmonary disease, unspecified; I10 Essential (primary) hypertension; I73.9 Peripheral vascular disease, unspecified; G43.909 Migraine, unspecified, not intractable, without status migrainosus; G40.909 Epilepsy, unspecified, not intractable, without status epilepticus; K21.9 Gastro-esophageal reflux disease without esophagitis; Z87.440 Personal history of urinary (tract) infections; F17.210 Nicotine dependence, cigarettes, uncomplicated; F31.9 Bipolar disorder, unspecified; F41.9 Anxiety disorder, unspecified; Z87.19 Personal history of other diseases of the digestive system; Z90.710 Acquired absence of both cervix and uterus; Z98.51 Tubal ligation status
CPT/HCPCS: 96372; 99284